=== PATIENT | female | born 1975 | race Caucasian/White ===

== ENCOUNTER 2024-05-05 09:27 | Outpatient (AMB) | payer BC, SELFPAY ==
--- NOTE | 2024-05-05 09:53 | A.OFFVISCC_ITS ---
Intake Visit Reasons: Intake Allergies No Known Allergies Allergy (Verified 05/05/24 09:55) HPI HPI Intake: Details: Patient presents as walk in for continuation of treatment for OUD She is currently a patient at [facility] and looking to transfer her care She reports being in remission from opiates for 5 years Denies any health history--however she has not seen a provider in many years Full substance use history obtained by RN Patient also reported Alcohol use disorder with last [facility] admission 2 years ago She reports she currently drinking on weekends 3 vodka drinks each day prior to ATS admission drinking daily BH PTSD, anxiety and ADHD Sleep ok appetite varies Unclear if she has ever been formally diagnosed, but she does report SSRI trials, but was always actively using at the time they were prescribed Social working FT for [employer] identifies her mother and son as her main supports Review of Systems Const Reports as per HPI Physical Exam Const General: cooperative, anxious and well groomed Nutritional Appearance: thin Orientation/consciousness: patient oriented x3 Limitations: no limitations Neuro General: patient oriented x3 Psych Speech and movement: Clear speech present Affect: Anxious affect present Attitude: cooperative Thought process: Normal thought process present Thought content: Normal thought content present Insight: Good insight present (Psych) Judgement: Good judgement present (Psych) Results AMB 14 Panel Urine Drug Screen Urine Marijuana (THC) Positive Last Edit by Carmella Stephens RN on 05/05/24 16:36 Urine Cocaine Negative Last Edit by Carmella Stephens RN on 05/05/24 16:36 Urine Morphine Negative Last Edit by Carmella Stephens RN on 05/05/24 16:36 Urine Methamphetamine Negative Last Edit by Carmella Stephens RN on 05/05/24 16:36 Urine Amphetamine Negative Last Edit by Carmella Stephens RN on 05/05/24 16:36 Urine Benzodiazepine Negative Last Edit by Carmella Stephens RN on 05/05/24 16 :36 Urine Barbiturates Negative Last Edit by Carmella Stephens RN on 05/05/24 16:3 6 Urine Methadone Negative Last Edit by Carmella Stephens RN on 05/05/24 16:36 Urine Buprenorphine Positive Last Edit by Carmella Stephens RN on 05/05/24 16: 36 Urine Tricyclic Antidepressant Negative Last Edit by Carmella Stephens RN on 05/05/24 16:36 Urine MDMA Negative Last Edit by Carmella Stephens RN on 05/05/24 16:36 Urine Oxycodone Negative Last Edit by Carmella Stephens RN on 05/05/24 16:36 Urine Phencyclidine Negative Last Edit by Carmella Stephens RN on 05/05/24 16: 36 Urine Propoxyphene Negative Last Edit by Carmella Stephens RN on 05/05/24 16:3 6 Results Reviewed Results Reviewed: Laboratory Last Values POC Urine Buprenorphine Positive 05/05/24 16:35 POC Urine Morphine Negative 05/05/24 16:35 POC Urine Oxycodone Negative 05/05/24 16:35 POC Urine Methadone Negative 05/05/24 16:35 POC Urine Propoxyphene Negative 05/05/24 16:35 POC Urine Barbiturates Negative 05/05/24 16:35 POC U Tricyclic Antidpr Negative 05/05/24 16:35 POC Urine PCP Negative 05/05/24 16:35 POC Ur Amphetamines Negative 05/05/24 16:35 POC Ur Methamphetamine Negative 05/05/24 16:35 POC Urine MDMA Negative 05/05/24 16:35 POC Ur Benzodiazepine Negative 05/05/24 16:35 POC Urine Cocaine Negative 05/05/24 16:35 POC Ur Marijuana (THC) Positive 05/05/24 16:35 Assessment & Plan Assessment & Plan (1) Opioid use disorder, severe, in sustained remission: Code(s): F11.21 - Opioid dependence, in remission Category: Medical Plan: * continue suboxone at current dose * sertraline trial --reviewed medication, dosing, side effects, goals * labs ordered * follow up 4 weeks Orders: Orders Vitamin B1 Today F10.21 - Alcohol dependence, in remission, F11.21 - Opioid dependence, in remission, Z13.30 - Encounter for screening examination for mental health and behavioral disorders, unspecified TSH reflex Free T4 Today F11.21 - Opioid dependence, in remission AMB 14 Panel Urine Drug Screen Today Z51.81 - Encounter for therapeutic drug level monitoring Complete Blood Count Auto Diff Today F10.21 - Alcohol dependence, in remission, F11.21 - Opioid dependence, in remission, Z13.30 - Encounter for screening examination for mental health and behavioral disorders, unspecified Comprehensive Met. Panel Today F10.21 - Alcohol dependence, in remission, F11.21 - Opioid dependence, in remission, Z13.30 - Encounter for screening examination for mental health and behavioral disorders, unspecified HIV Ab/Ag Today F10.21 - Alcohol dependence, in remission, F11.21 - Opioid dependence, in remission, Z13.30 - Encounter for screening examination for mental health and behavioral disorders, unspecified Vitamin D 25-OH Total Today F10.21 - Alcohol dependence, in remission, F11.21 - Opioid dependence, in remission, Z13.30 - Encounter for screening examination for mental health and behavioral disorders, unspecified Hepatitis A IgG Today F11.21 - Opioid dependence, in remission Hepatitis B Profile Today F11.21 - Opioid dependence, in remission Hepatitis C Antibody Reflex Today F11.21 - Opioid dependence, in remission Medications: New buprenorphine-naloxone 8-2 mg (Suboxone) 2 film buccal DAILY 60 ea 0RF sertraline (Zoloft) one tab for one week, then increase to 2 tabs daily 25 mg PO DAILY 45 tabs 0RF Intake Visit Reasons: Intake Allergies No Known Allergies Allergy (Verified 05/05/24 09:55) MAT Intake Nursing Intake Reason for visit: Establish care with our Office/ continuation of MAT Are you currently using?: No When was your last use?: 5 years ago Substance Abuse History Substance Abuse History (includes route, frequency and quantity): Marijuana Age of first use: 13 years old Social History Children: 1 son Do you have a support system?: Yes the son Current mode of transportation?: Takes the bus Where are you currently residing?: in a home in [place] with son IV Drug Use Have you ever shared needles?: No Have you ever belonged to a needle exchange program?: No Do you buy needles at a pharmacy?: No Have you ever overdosed?: No Number of lifetime overdoses: 1 Have you ever been hospitalized for an overdose?: Yes Was Naloxone administered?: Yes Recovery History Have you had any periods of recovery?: Yes What is your longest time in recovery?: 5 years When was the last time you were in recovery?: at this time Have you ever had inpatient treatment for your substance abuse disorder?: No Have you been in an inpatient detoxification program?: No Have you been in an inpatient Rehab/Intermediate house?: No Have you been in an outpatient Methadone Maintenance program?: No Have you been in an outpatient Suboxone Maintenance program?: No Have you been in an AA/NA support program?: No Have you had a Recovery Support Property Preservation Specialist?: No Have you had Peer Support?: No Details: Not interested at this time for a jv baseball coach Behavioral Health History Do you have a current provider? If so, who?: FARRAH Guerra diagnosis: Anxiety and ADHD History of self harming thoughts?: No History of homicidal or suicidal intentions?: No Medical Conditions Endocarditis?: No Skin Infection: No Seizure related to withdrawal or overdose: No Head or brain injury: No Hepatitis A (if yes, have you been treated?): No Hepatitis B (if yes, have you been treated?): No Hepatitis C (if yes, have you been treated?): Yes HIV (if yes, have you been treated?): No TB (if yes, have you been treated?): No Other: No Legal History History of incarceration: No Currently on parole or probation: No Court mandated programs: No Pending court cases: No DCF involvement: No
== END 2024-05-05 10:46 | disposition home or self-care (01) ==
PROVIDERS: Visit Provider Nurse Practitioner Psychiatric/Mental Health
DX: F11.21 Opioid dependence, in remission (principal); Z51.81 Encounter for therapeutic drug level monitoring
CPT/HCPCS: 99204

== ENCOUNTER 2024-05-05 09:27 | Outpatient (REF) | payer BC, SELFPAY ==
[2024-05-05 10:46] LABS: MANUAL DIFF FLAG NO
[2024-05-05 11:03] LABS: Basophils Absolute Auto 0.1 X10*3/uL (0.0-0.2); Basophils Percent Auto 1.2 % (0-2); Eosinophils Absolute Auto 0.1 X10*3/uL (0.0-0.4); Eosinophils Percent Auto 2.4 % (0-4); Hematocrit 40.6 % (37.0-47.0); Hemoglobin 14.1 g/dl (12.0-16.0); Lymphocytes Absolute Auto 1.5 X10*3/uL (1.2-4.9); Lymphocytes Percent Auto 36.7 % (20-40); Mean Corpuscular HGB Conc 34.7 g/dl (31.0-35.0); Mean Corpuscular Hemoglobin 33.1 pg (27.0-33.0); Mean Corpuscular Volume 95.3 fL (80.0-98.0); Mean Platelet Volume 8.7 fL (9.4-12.3); Monocytes Absolute Auto 0.5 X10*3/uL (0.1-1.2); Monocytes Percent Auto 12.9 % (2-11); Neutrophils Absolute Auto 1.9 x10*3/uL (2.0-8.3); Neutrophils Percent Auto 46.8 % (45-73); Platelet Count 271 X10*3/uL (160-400); Red Blood Count 4.26 X10*6/uL (4.20-5.50); Red Cell Distribution Width 13.1 % (11.0-16.0); White Blood Count 4.1 X10*3/uL (4.8-10.8)
[2024-05-05 12:37] LABS: TSH reflex Free T4 0.89 uIU/mL (0.32-4.0); Vitamin D 25-OH Total 19.2 ng/mL (>30)
[2024-05-05 12:41] LABS: Alanine Aminotransferase 43 U/L (0-31); Albumin Level 4.4 g/dL (3.5-5.0); Alkaline Phosphatase 98 U/L (39-117); Anion Gap 16 (12-20); Aspartate Amino Transferase 89 U/L (5-31); Bilirubin Total 0.4 mg/dL (0.0-1.0); Blood Urea Nitrogen 7 mg/dL (9-16); Calcium 9.4 mg/dL (8.4-10.2); Carbon Dioxide 19 mmol/L (22-29); Chloride 106 mmol/L (96-108); Estimated Glomerular Filt Rate > 60; Glucose Random 117 mg/dL (60-115); Potassium 3.4 mmol/L (3.3-5.1); Sodium 138 mmol/L (135-145); Total Protein 7.9 g/dL (6.5-8.0)
[2024-05-05 13:05] LABS: HBS Num1 0.54 mIU/mL (0-7.99); HBsAGNum1 0.55 S/CO (0.00-0.99); HIV AB/AG Nonreactive (Nonreactive); HIV Num 1 0.05 S/CO (0.00-0.99); Hepatitis A Antibody IgG Nonreactive (Nonreactive); Hepatitis B Core Antibody Nonreactive (Nonreactive); Hepatitis B Surface Antigen Negative (Negative); ~HepC Num1 3.22 S/CO (0.00-0.79); ~Hepatitis A Antibody IgG 0.33 S/CO (0.00-0.99); ~Hepatitis B Surface Antibody NONREACTIVE (Nonreactive); ~Hepatitis C Antibody Reactive (Nonreactive)
[2024-05-09 15:09] LABS: HCV Log PCR <1.18 NOT DETECTED Log IU/mL (NOT DETECTED); HepC Viral Load <15 NOT DETECTED IU/mL (NOT DETECTED)
[2024-05-11 06:48] LABS: Vitamin B1 9 nmol/L (8-30)
== END 2024-05-05 09:28 | disposition home or self-care (01) ==
LOC: HO.LAB 09:27
PROVIDERS: Visit Provider Nurse Practitioner Psychiatric/Mental Health
DX: Z13.30 Encounter for screening examination for mental health and behavioral disorders, unspecified (principal); F11.21 Opioid dependence, in remission; F10.21 Alcohol dependence, in remission
CPT/HCPCS: 36415; 80053; 80307; 82306; 84425; 84443; 85025; 86704; 86706; 86708; 86803; 87340; 87389; 87522

== ENCOUNTER 2024-06-02 09:31 | Outpatient (AMB) | payer BC, SELFPAY ==
--- NOTE | 2024-06-02 09:50 | A.OFFVISCC_ITS ---
Vital Signs 06/02/24 10:08 BP 150/90 H Blood Pressure Location Rt brachial Position Sitting Intake Visit Reasons: MAT Office Allergies No Known Allergies Allergy (Verified 05/05/24 09:55) HPI HPI MAT Office: Details: Patient presents for follow up Reviewed lab work--discussed elevated liver enzymes Discussed how alcohol impacts this Tolerating Sertraline--feels tired, taking in the evening Needs to schedule PCP appt discussed BP--denies blurred vision, headache, dizziness Review of Systems Const Reports as per HPI Physical Exam Vital Signs: Last Vital Signs BP 150/90 H 06/02/24 10:08 Const General: cooperative, healthy appearing and well groomed Nutritional Appearance: thin Orientation/consciousness: patient oriented x3 Limitations: no limitations Neuro General: patient oriented x3 Assessment & Plan Assessment & Plan (1) Opioid use disorder, severe, in sustained remission: Code(s): F11.21 - Opioid dependence, in remission Category: Medical Plan: * continue suboxone at current dose (2) Alcohol use disorder, severe, in sustained remission: Code(s): F10.21 - Alcohol dependence, in remission Category: Medical Plan: * risk reduction discussion * reviewed safer drinking handout Medications: Changed From sertraline (Zoloft) one tab for one week, then increase to 2 tabs daily 25 mg PO DAILY 45 tabs 0RF To sertraline (Zoloft) 25 mg PO DAILY 90 tabs 0RF Refilled buprenorphine-naloxone 8-2 mg (Suboxone) 2 film buccal DAILY 60 ea 0RF
[2024-06-02 10:08] VITALS: BP 150/90
== END 2024-06-02 10:39 | disposition home or self-care (01) ==
LOC: HO.HCC 09:31
PROVIDERS: Visit Provider Nurse Practitioner Psychiatric/Mental Health
DX: F11.21 Opioid dependence, in remission (principal); F10.21 Alcohol dependence, in remission
CPT/HCPCS: 99214

== ENCOUNTER 2024-07-27 15:23 | Outpatient (AMB) | payer BC, SELFPAY ==
--- NOTE | 2024-07-27 15:43 | A.OFFVISCC_ITS ---
Intake Visit Reasons: MAT Allergies No Known Allergies Allergy (Verified 05/05/24 09:55) HPI HPI MAT: Details: Patient presents for follow up Currently prescribed 16mg Reports she has been taking about 12mg daily Tolerating sertraline, feels it may be helping with mood Very tearful during visit related to recent procedure where she had teeth extracted and provided with partial dentures which don't fit well Has PCP appt in December--discussed BP readings and encouraged to be seen sooner Review of Systems Const Reports as per HPI Physical Exam Const General: cooperative and anxious Nutritional Appearance: thin Orientation/consciousness: patient oriented x3 Limitations: no limitations Neuro General: patient oriented x3 Psych Appearance: well kempt Speech and movement: Clear speech present Affect: Sad affect present and Animated affect present Attitude: cooperative Thought process: Circumstantial thought process present Thought content: Normal thought content present Insight: Good insight present (Psych) Judgement: Good judgement present (Psych) Assessment & Plan Assessment & Plan (1) Opioid use disorder, severe, in sustained remission: Code(s): F11.21 - Opioid dependence, in remission Category: Medical Plan: * continue suboxone at 12mg daily * follow up 4 weeks (2) Alcohol use disorder, severe, in sustained remission: Code(s): F10.21 - Alcohol dependence, in remission Category: Medical Plan: * relapse prevention discussion
== END 2024-07-27 16:04 | disposition home or self-care (01) ==
PROVIDERS: Visit Provider Nurse Practitioner Psychiatric/Mental Health
DX: F11.21 Opioid dependence, in remission (principal); F10.21 Alcohol dependence, in remission
CPT/HCPCS: 99213

== ENCOUNTER 2024-08-25 11:28 | Outpatient (AMB) | payer BC, SELFPAY ==
--- NOTE | 2024-08-25 11:31 | A.OFFVISCC_ITS ---
Vital Signs 08/25/24 11:34 BP 110/60 Blood Pressure Location Lt brachial Position Left Lateral Pulse 99 Pulse Oximetry (%) 98 Intake Visit Reasons: MAT Allergies No Known Allergies Allergy (Verified 05/05/24 09:55) HPI HPI MAT: Details: Patient presents for follow up Currently prescribed Suboxone 12mg daily (8mg +4mg) Tolerating current dose wants one rx (due to cost) will prescribed 12mg films --take 1/2 film BID Review of Systems Const Reports as per HPI and Reports no additional complaints Physical Exam Vital Signs: Last Vital Signs Pulse 99 08/25/24 11:34 BP 110/60 08/25/24 11:34 Pulse Ox 98 08/25/24 11:34 Const General: cooperative and healthy appearing Nutritional Appearance: average body habitus Orientation/consciousness: patient oriented x3 Limitations: no limitations Neuro General: patient oriented x3 Psych Appearance: well kempt Speech and movement: Normal speech and movement present Affect: normal affect Attitude: cooperative Thought process: Normal thought process present Thought content: Normal thought content present Insight: Good insight present (Psych) Judgement: Good judgement present (Psych) Assessment & Plan Assessment & Plan (1) Opioid use disorder, severe, in sustained remission: Code(s): F11.21 - Opioid dependence, in remission Category: Medical Plan: * continue suboxone at 12mg daily * follow up 4 weeks (2) Alcohol use disorder, severe, in sustained remission: Code(s): F10.21 - Alcohol dependence, in remission Category: Medical Plan: * relapse prevention discussion
[2024-08-25 11:34] VITALS: BP 110/60; PULSE 99; O2SAT 98
== END 2024-08-25 11:49 | disposition home or self-care (01) ==
PROVIDERS: Visit Provider Nurse Practitioner Psychiatric/Mental Health
DX: F11.21 Opioid dependence, in remission (principal); F10.21 Alcohol dependence, in remission
CPT/HCPCS: 99214